=== PATIENT | female | born 1995 | race Caucasian/White ===

== ENCOUNTER 2017-01-09 15:44 | Emergency (ER) | payer OTHER ==
[2017-01-09 15:49] VITALS: RESP 20; TEMP 98.5
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
[2017-01-09 17:19] VITALS: BP 140/67; PULSE 123
== END 2017-01-09 17:32 | disposition short-term general hospital (02) ==
LOC: EC 15:44
DX: E05.90 Thyrotoxicosis, unspecified without thyrotoxic crisis or storm (principal); R00.0 Tachycardia, unspecified; Z91.012 Allergy to eggs; Z79.51 Long term (current) use of inhaled steroids; Z79.899 Other long term (current) drug therapy
CPT/HCPCS: 93005; 99283; 99284

== ENCOUNTER 2017-12-06 15:00 | Emergency (ER) | payer OTHER ==
[2017-12-06 15:06] VITALS: RESP 18
--- NOTE | 2017-12-06 15:32 | ED ---
General Adult HPI - General Chief complaint: Vaginal Bleeding Stated complaint: Bleeding 6-8 wks Time Seen by Provider: 12/06/17 15:20 Source: patient, RN notes reviewed Mode of arrival: ambulatory Limitations: no limitations - History of Present Illness Initial comments: Patient 21-year-old female presenting to the emergency room today with a chief complaint of vaginal bleeding over the last 6 weeks. Patient states that she's had constant bleeding at times been heavier. She states that she has at times felt dizzy and lightheaded. She states she does not feel that way currently lives been going on for 6 weeks and is unable to see her OB so she came here in emergency room. Patient does admit to abdominal cramping in the abdomen. Patient denies any recent fever, chills, shortness of breath, chest pain, back pain, abdominal pain, dysuria or hematuria, constipation or diarrhea, headaches or visual changes, or any other complaints. - Related Data Home Medications Medication Instructions Recorded Confirmed Albuterol Nebulized [Ventolin 2.5 mg INHALATION RT-QID PRN 01/09/17 12/06/17 Nebulized] Loratadine [Claritin] 10 mg PO DAILY 01/09/17 12/06/17 Methimazole 20 mg PO DAILY 01/09/17 12/06/17 Montelukast [Singulair] 10 mg PO DAILY 01/09/17 12/06/17 Previous Rx's Medication Instructions Recorded Ibuprofen [Motrin] 600 mg PO Q6HR PRN #30 day 12/06/17 Ondansetron Odt [Zofran ODT] 4 mg PO Q8HR PRN #20 tab 12/06/17 Allergies Allergy/AdvReac Type Severity Reaction Status Date / Time adhesive tape Allergy Rash/Hives Verified 12/06/17 15:49 corn Allergy Unknown Verified 12/06/17 15:49 egg Allergy Unknown Verified 12/06/17 15:49 Review of Systems ROS Statement: Those systems with pertinent positive or pertinent negative responses have been documented in the HPI. ROS Other: All systems not noted in ROS Statement are negative. Past Medical History Past Medical History: Thyroid Disorder History of Any Multi-Drug Resistant Organisms: None Reported Past Surgical History: No Surgical Hx Reported Past Psychological History: Anxiety Smoking Status: Never smoker Past Alcohol Use History: None Reported Past Drug Use History: None Reported General Exam - General Exam Comments Initial Comments: General: The patient is awake and alert, in no distress, and does not appear acutely ill. Eye: Extra-ocular movements are intact. No nystagmus. There is normal conjunctiva bilaterally. No signs of icterus. Ears, nose, mouth and throat: There are moist mucous membranes and no oral lesions. Neck: The neck is supple, there is no tenderness or JVD. Cardiovascular: There is a regular rate and rhythm. No murmur, rub or gallop is appreciated. Respiratory: Lungs are clear to auscultation, respirations are non-labored, breath sounds are equal. No wheezes, stridor, rales, or rhonchi. Gastrointestinal: Soft on palpation. Patient does have mild tenderness both in upper and lower quadrants. No rebound, guarding or CVA tenderness. Musculoskeletal: Normal ROM, no tenderness. Sensation intact. Neurological: A&O x 3. CN II-XII intact, There are no obvious motor or sensory deficits. Coordination appears grossly intact. Speech is normal. Skin: Skin is warm and dry and no rashes or lesions are noted. Psychiatric: Cooperative, appropriate mood & affect, normal judgment. Limitations: no limitations Course Vital Signs 12/06/17 15:02 Temperature 98.3 F Pulse Rate 89 Respiratory 18 Rate Blood Pressure 130/85 O2 Sat by Pulse 99 Oximetry Medical Decision Making - Medical Decision Making Patient's labs been reviewed. Hemoglobin is stable. Patient's ultrasound Thickened endometrium with uniform echogenicity. She will be discharged to follow-up with PIPELINE TECHNICIAN. She'll be given prescription for Zofran, ibuprofen for pain. Advised return to emergency room for any other concerns. - Lab Data Result diagrams: 12/06/17 15:30 12/06/17 15:30 Lab Results 12/06/17 12/06/17 12/06/17 Range/Units 15:30 15:30 15:30 WBC 7.0 (3.8-10.6) k/uL RBC 4.82 (3.80-5.40) m/uL Hgb 12.4 (11.4-16.0) gm/dL Hct 39.4 (34.0-46.0) % MCV 81.8 (80.0-100.0) fL MCH 25.8 (25.0-35.0) pg MCHC 31.5 (31.0-37.0) g/dL RDW 15.4 (11.5-15.5) % Plt Count 293 (150-450) k/uL Neutrophils % 77 % Lymphocytes % 16 % Monocytes % 5 % Eosinophils % 0 % Basophils % 0 % Neutrophils # 5.4 (1.3-7.7) k/uL Lymphocytes # 1.1 (1.0-4.8) k/uL Monocytes # 0.3 (0-1.0) k/uL Eosinophils # 0.0 (0-0.7) k/uL Basophils # 0.0 (0-0.2) k/uL PT 9.9 (9.0-12.0) sec INR 1.0 (<1.2) APTT 26.5 (22.0-30.0) sec Sodium 139 (137-145) mmol/L Potassium 4.4 (3.5-5.1) mmol/L Chloride 103 (98-107) mmol/L Carbon Dioxide 25 (22-30) mmol/L Anion Gap 11 mmol/L BUN 10 (7-17) mg/dL Creatinine 0.85 (0.52-1.04) mg/dL Est GFR (CKD-EPI)AfAm >90 (>60 ml/min/1.73 sqM) Est GFR (CKD-EPI)NonAf >90 (>60 ml/min/1.73 sqM) Glucose 93 (74-99) mg/dL Calcium 9.5 (8.4-10.2) mg/dL Total Bilirubin 0.4 (0.2-1.3) mg/dL AST 20 (14-36) U/L ALT 26 (9-52) U/L Alkaline Phosphatase 129 H (38-126) U/L Total Protein 8.1 (6.3-8.2) g/dL Albumin 4.4 (3.5-5.0) g/dL Urine Color Urine Appearance (Clear) Urine pH (5.0-8.0) Ur Specific [place] (1.001-1.035) Urine Protein (Negative) Urine Glucose (UA) (Negative) Urine Ketones (Negative) Urine Blood (Negative) Urine Nitrite (Negative) Urine Bilirubin (Negative) Urine Urobilinogen (<2.0) mg/dL Ur Leukocyte Esterase (Negative) Urine RBC (0-5) /hpf Urine WBC (0-5) /hpf Ur Squamous Epith Cells (0-4) /hpf Urine Bacteria (None) /hpf Urine Mucus (None) /hpf Urine HCG, Qual (Not Detectd) 12/06/17 12/06/17 Range/Units 17:54 17:54 WBC (3.8-10.6) k/uL RBC (3.80-5.40) m/uL Hgb (11.4-16.0) gm/dL Hct (34.0-46.0) % MCV (80.0-100.0) fL MCH (25.0-35.0) pg MCHC (31.0-37.0) g/dL RDW (11.5-15.5) % Plt Count (150-450) k/uL Neutrophils % % Lymphocytes % % Monocytes % % Eosinophils % % Basophils % % Neutrophils # (1.3-7.7) k/uL Lymphocytes # (1.0-4.8) k/uL Monocytes # (0-1.0) k/uL Eosinophils # (0-0.7) k/uL Basophils # (0-0.2) k/uL PT (9.0-12.0) sec INR (<1.2) APTT (22.0-30.0) sec Sodium (137-145) mmol/L Potassium (3.5-5.1) mmol/L Chloride (98-107) mmol/L Carbon Dioxide (22-30) mmol/L Anion Gap mmol/L BUN (7-17) mg/dL Creatinine (0.52-1.04) mg/dL Est GFR (CKD-EPI)AfAm (>60 ml/min/1.73 sqM) Est GFR (CKD-EPI)NonAf (>60 ml/min/1.73 sqM) Glucose (74-99) mg/dL Calcium (8.4-10.2) mg/dL Total Bilirubin (0.2-1.3) mg/dL AST (14-36) U/L ALT (9-52) U/L Alkaline Phosphatase (38-126) U/L Total Protein (6.3-8.2) g/dL Albumin (3.5-5.0) g/dL Urine Color Light Yellow Urine Appearance Clear (Clear) Urine pH 6.0 (5.0-8.0) Ur Specific [place] 1.005 (1.001-1.035) Urine Protein Negative (Negative) Urine Glucose (UA) Negative (Negative) Urine Ketones Negative (Negative) Urine Blood Large H (Negative) Urine Nitrite Negative (Negative) Urine Bilirubin Negative (Negative) Urine Urobilinogen <2.0 (<2.0) mg/dL Ur Leukocyte Esterase Negative (Negative) Urine RBC 57 H (0-5) /hpf Urine WBC 8 H (0-5) /hpf Ur Squamous Epith Cells <1 (0-4) /hpf Urine Bacteria Occasional H (None) /hpf Urine Mucus Rare H (None) /hpf Urine HCG, Qual Not Detected (Not Detectd) Disposition Clinical Impression: Dysfunctional uterine bleeding Disposition: HOME SELF-CARE Condition: Good Additional Instructions: Please use medication as discussed. Please follow-up with PIPELINE TECHNICIAN/family doctor in the next 2-5 days of symptoms have not improved. Please return to emergency room if the symptoms increase or worsen or for any other concerns. Prescriptions: Ibuprofen [Motrin] 600 mg PO Q6HR PRN #30 day PRN Reason: Pain Ondansetron Odt [Zofran ODT] 4 mg PO Q8HR PRN #20 tab PRN Reason: Nausea Is patient prescribed a controlled substance at d/c from ED?: No Referrals: Guero Bañuelos MD [Primary Care Provider] - 1-2 days Time of Disposition: 18:21
[2017-12-06 15:58] LABS: ALT 26 U/L (9-52); AST 20 U/L (14-36); Albumin 4.4 g/dL (3.5-5.0); Alkaline Phosphatase 129 U/L (38-126); Anion Gap 11 mmol/L; Blood Urea Nitrogen 10 mg/dL (7-17); Calcium 9.5 mg/dL (8.4-10.2); Carbon Dioxide 25 mmol/L (22-30); Chloride 103 mmol/L (98-107); Glucose 93 mg/dL (74-99); Potassium 4.4 mmol/L (3.5-5.1); Sodium 139 mmol/L (137-145); Total Bilirubin 0.4 mg/dL (0.2-1.3); Total Protein 8.1 g/dL (6.3-8.2)
[2017-12-06 16:00] LABS: Basophils % (A) 0 %; Eosinophils % (A) 0 %; HCT 39.4 % (34.0-46.0); HGB 12.4 gm/dL (11.4-16.0); Lymphocytes # (A) 1.1 k/uL (1.0-4.8); Lymphocytes % (A) 16 %; MCH 25.8 pg (25.0-35.0); MCHC 31.5 g/dL (31.0-37.0); MCV 81.8 fL (80.0-100.0); Mean Platelet Volume 6.4; Monocytes # (A) 0.3 k/uL (0-1.0); Monocytes % (A) 5 %; Neutrophils # (A) 5.4 k/uL (1.3-7.7); Neutrophils % (A) 77 %; Platelet Count 293 k/uL (150-450); RBC 4.82 m/uL (3.80-5.40); RDW 15.4 % (11.5-15.5)
[2017-12-06 16:09] LABS: Partial Thromboplastin Time 26.5 sec (22.0-30.0); Prothrombin Time 9.9 sec (9.0-12.0)
--- NOTE | 2017-12-06 17:05 | US ---
EXAMINATION TYPE: US transvaginal DATE OF EXAM: 12/06/2017 COMPARISON: NONE CLINICAL HISTORY: bleeding. Bleeding since 10/26/2017 with intermittent cramping, history of irregula r cycles, 0 TECHNIQUE: Transvaginal ER exam. Date of LMP: 10/26/2017 EXAM MEASUREMENTS: Uterus: 9.5 x 4.4 x 5.2 cm Endometrial Stripe: 1.8 cm Right Ovary: not seen Left Ovary: not seen Difficult and limited study due to patient body habitus 1. Uterus: anteverted, multiple nabothian cysts 2. Endometrium: thickened at 1.8cm 3. Right Ovary: not seen due to overlying bowel 4. Left Ovary: not seen due to overlying bowel 5. Bilateral Adnexa: wnl 6. Posterior cul-de-sac: wnl IMPRESSION: Uterus is demonstrating a thickened endometrium with uniform echogenicity. This is probab ly related to hyperplasia. Ovaries not seen. No adnexal mass or free fluid. Numerous cervical cysts a re noted on the transvaginal images.
[2017-12-06] MEDS ORDERED: ONDANSETRON 4 MG/2 ML VIAL IVP STA (17:27)
[2017-12-06 18:10] LABS: Appearance,Urine Clear (Clear); Bacteria,Urine Occasional /hpf; Bilirubin,Urine Negative (Negative); Blood,Urine Large (Negative); Color,Urine Light Yellow; Glucose,Urine (UA) Negative (Negative); Ketones,Urine Negative (Negative); Leukocyte Esterase,Urine Negative (Negative); Mucus,Urine Rare /hpf; Nitrite,Urine Negative (Negative); Protein,Urine Negative (Negative); RBC,Urine 57 /hpf (0-5); Specific Gravity,Urine 1.005 (1.001-1.035); Squamous Epithelial Cell,Urine <1 /hpf (0-4); Urobilinogen,Urine <2.0 mg/dL (<2.0)
[2017-12-06 19:06] VITALS: BP 150/84; PULSE 84; TEMP 97.7
== END 2017-12-06 19:06 | disposition home or self-care (01) ==
LOC: EC 15:00
DX: N93.8 Other specified abnormal uterine and vaginal bleeding (principal); R42 Dizziness and giddiness; R10.9 Unspecified abdominal pain; E07.9 Disorder of thyroid, unspecified; F41.9 Anxiety disorder, unspecified; Z79.899 Other long term (current) drug therapy; Z91.018 Allergy to other foods; Z91.048 Other nonmedicinal substance allergy status
CPT/HCPCS: 51798; 36415; 80053; 85025; 85610; 85730; 81001; 81025; 87086; 76830; 99284; 96374; J2405

== ENCOUNTER → 2020-10-08 | Outpatient (CLI) | payer OTHER ==
[2020-10-08 11:47] LABS: Anisocytosis Slight; Basophils % (A) 1 %; Eosinophils # (A) 0.3 k/uL (0-0.7); Eosinophils % (A) 4 %; HCT 27.6 % (34.0-46.0); HGB 8.8 gm/dL (11.4-16.0); Hypochromasia Marked; Lymphocytes # (A) 1.6 k/uL (1.0-4.8); Lymphocytes % (A) 22 %; MCH 21.5 pg (25.0-35.0); MCHC 32.1 g/dL (31.0-37.0); MCV 67.1 fL (80.0-100.0); Mean Platelet Volume 7.1; Microcytosis Marked; Monocytes # (A) 0.3 k/uL (0-1.0); Monocytes % (A) 4 %; Neutrophils # (A) 4.9 k/uL (1.3-7.7); Neutrophils % (A) 68 %; Platelet Count 308 k/uL (150-450); RBC 4.11 m/uL (3.80-5.40); RDW 17.3 % (11.5-15.5); WBC 7.2 k/uL (3.8-10.6)
== END | disposition home or self-care (01) ==
LOC: LABPAT 09:41
PROVIDERS: ATTEND Obstetrics & Gynecology Obstetrics
DX: Z01.812 Encounter for preprocedural laboratory examination (principal); N93.9 Abnormal uterine and vaginal bleeding, unspecified
CPT/HCPCS: 36415; 85025

== ENCOUNTER 2020-10-12 07:05 | Day surgery (SDC) | payer OTHER ==
[2020-10-09 10:13] VITALS: BMI 48.1
[~2020-10-12 07:05] MED LIST: DEXAMETHASONE SOD PHOSPHATE 4 MG/ML 1 ML VIAL IV ONE; HYDROmorphone 0.5 MG/0.5 ML SYRINGE IVP PRN; LACTATED RINGERS 1,000 ML IV SCH; LIDOCAINE 1% (10MG/ML) FOR IV START INTRADERMA PRN; MIDAZOLAM 2 MG/2 ML VIAL IV PRN; ONDANSETRON 4 MG/2 ML VIAL IVP ONE; Pre Op ABX Message 1 EACH MISC MISCELLANE ONE
[2020-10-12] MEDS ORDERED: ALBUTEROL NEBULIZED 2.5 MG/3 ML INHALATION ONE (08:03)
[2020-10-12] MEDS ORDERED: SUCCINYLCHOLINE CHLORIDE 100 MG/5 ML SYR IV ONE (08:34)
[2020-10-12] MEDS ORDERED: fentaNYL (PF) 50 MCG/ML 2 ML AMP ONE (08:34)
[2020-10-12] MEDS ORDERED: MIDAZOLAM 2 MG/2 ML VIAL ONE (08:34)
[2020-10-12] MEDS ORDERED: LIDOCAINE 1% INJ 10MG/ML (20 ML MDV) ONE (08:34)
[2020-10-12] MEDS ORDERED: PROPOFOL 10 MG/ML 20 ML VIAL IV ONE (08:34)
[2020-10-12 09:19] VITALS: TEMP 97
--- NOTE | 2020-10-12 09:24 | P.OP ---
Date of Procedure: 10/12/20 Preoperative Diagnosis: Dysfunctional uterine bleeding, anemia, thickened endometrial stripe at 2 cm Postoperative Diagnosis: Same Procedure(s) Performed: Hysteroscopy, dilation and curettage Anesthesia: RACHEL Surgeon: Muna Matta Estimated Blood Loss (ml): 5 IV fluids (ml): 400 Urine output (ml): 50 Pathology: other (Endometrial curettings) Condition: stable Disposition: PACU Indications for Procedure: Irregular heavy menstrual bleeding, on ultrasound thickened endometrial lining 2 cm Operative Findings: Proliferative endometrial cavity Description of Procedure: Patient was taken back to the operating suite where general anesthesia was obtained without difficulty by the anesthesia department. The patient was prepped and draped in normal sterile fashion in the dorsal lithotomy position. A weighted speculum was placed in the posterior vaginal vault the anterior lip of the cervix was visualized and grasped with a single-tooth tenaculum. The endocervical canal was then dilated. A hysteroscope was placed through the cervix and toward the endometrial cavity the above-noted findings were visualized. A sharp curettage was performed after the hysteroscope was removed this specimen was then sent to pathology for analysis. The single-tooth tenaculum was taken off of the anterior lip of the cervix. Hemostasis was appreciated. All instruments were removed from the patient's vaginal vault. All counts are noted to be correct 2 at the end of the procedure. Patient tolerated procedure well and was taken the recovery room awake in stable condition.
[2020-10-12 09:43] VITALS: RESP 16
[2020-10-12 10:04] VITALS: BP 113/70; PULSE 98
== END 2020-10-12 10:40 | disposition home or self-care (01) ==
LOC: OR 07:05
PROVIDERS: ATTEND Obstetrics & Gynecology Obstetrics
DX: R93.89 Abnormal findings on diagnostic imaging of other specified body structures (principal); D64.9 Anemia, unspecified; N92.0 Excessive and frequent menstruation with regular cycle; N93.8 Other specified abnormal uterine and vaginal bleeding; F41.8 Other specified anxiety disorders; E66.01 Morbid (severe) obesity due to excess calories; E07.9 Disorder of thyroid, unspecified
CPT/HCPCS: 58563; 81025; 88305; J2250; J1100; J2405; J2001; J3010; J0330; J2704

== ENCOUNTER 2022-09-28 16:55 | Emergency (ER) | payer OTHER ==
[2022-09-28 17:36] VITALS: TEMP 98
--- NOTE | 2022-09-28 18:18 | ED ---
Skin/Abscess/FB HPI - General Source: patient, RN notes reviewed Mode of arrival: ambulatory Limitations: no limitations - History of Present Illness MD complaint: rash <Janneth Walsh - Last Filed: 09/28/22 18:15> <Komal Gillette - Last Filed: 09/29/22 03:36> - General Chief complaint: Skin/Abscess/Foreign Body Stated complaint: R arm Rash, spreaded since morning after seeing PA Time Seen by Provider: 09/28/22 18:10 - History of Present Illness Initial comments: This is a 26-year-old female who presents to the emergency department for a rash to the right forearm. States that this started about 3 weeks ago. She saw her primary care provider today, and believes that it has spread since then. Describes the rash as painful. Denies coming into contact with any new substances or any plants outside that may have caused this. (Janneth Walsh) 26-year-old female presenting with chief complaint of rash to the right forearm that has been ongoing for the last 3 weeks. The rash is quite "bumpy", it appears red and it is sensitive to light touch. Patient is having increased irritation. He is currently taking Benadryl and Claritin as well as an antihistamine cream. No difficulty breathing or swallowing. No fevers or chills. No nausea or vomiting. No new foods, medications, topical products. (Komal Gillette) - Related Data Home Medications Medication Instructions Recorded Confirmed Albuterol Nebulized [Ventolin 2.5 mg INHALATION RT-QID PRN 01/09/17 10/12/20 Nebulized] Loratadine [Claritin] 10 mg PO DAILY 01/09/17 10/12/20 Montelukast [Singulair] 10 mg PO DAILY 01/09/17 10/12/20 Bcp 1 tab PO DAILY 10/09/20 10/12/20 Ergocalciferol [Vitamin D2 (1250 1,250 mcg PO WEEKLY 10/09/20 10/12/20 Mcg = 80948 Iu)] Escitalopram [Lexapro] 10 mg PO DAILY 10/09/20 10/12/20 Ferrous Sulfate [Feosol] 325 mg PO DAILY 10/09/20 10/12/20 LORazepam [Ativan] 0.5 mg PO DAILY PRN 10/09/20 10/12/20 Levothyroxine Sodium [Synthroid] 175 mcg PO DAILY 10/09/20 10/12/20 Previous Rx's Medication Instructions Recorded predniSONE 50 mg PO DAILY 5 Days #5 tab 09/28/22 Allergies Allergy/AdvReac Type Severity Reaction Status Date / Time adhesive tape Allergy Rash/Hives Verified 09/28/22 17:33 corn Allergy Unknown Verified 09/28/22 17:33 egg Allergy Unknown Verified 09/28/22 17:33 Review of Systems ROS Other: All systems not noted in ROS Statement are negative. <Janneth Walsh - Last Filed: 09/28/22 18:15> ROS Other: All systems not noted in ROS Statement are negative. <Komal Gillette - Last Filed: 09/29/22 03:36> ROS Statement: Those systems with pertinent positive or pertinent negative responses have been documented in the HPI. Past Medical History Past Medical History: Thyroid Disorder History of Any Multi-Drug Resistant Organisms: None Reported Past Surgical History: No Surgical Hx Reported Past Psychological History: Anxiety Past Alcohol Use History: None Reported Past Drug Use History: None Reported <Janneth Walsh - Last Filed: 09/28/22 18:15> General Exam Limitations: no limitations <Janneth Walsh - Last Filed: 09/28/22 18:15> Limitations: no limitations General appearance: alert, in no apparent distress Head exam: Present: atraumatic, normocephalic, normal inspection Eye exam: Present: normal appearance, PERRL, EOMI. Absent: scleral icterus, conjunctival injection, periorbital swelling ENT exam: Present: normal exam Neck exam: Present: normal inspection, full ROM Respiratory exam: Present: normal lung sounds bilaterally. Absent: respiratory distress, wheezes, rales, rhonchi, stridor Cardiovascular Exam: Present: regular rate, normal rhythm, normal heart sounds. Absent: systolic murmur, diastolic murmur, rubs, gallop, clicks Neurological exam: Present: alert, oriented X3, CN II-XII intact Psychiatric exam: Present: normal affect, normal mood Skin exam: Present: rash (Erythematous and papular rash to the right forearm) <Komal Gillette - Last Filed: 07/06/23 03:36> - General Exam Comments Initial Comments: Visual Physical Exam Vital signs reviewed General: Well-appearing, nontoxic, no acute distress. Head: Normocephalic, atraumatic Eyes: PERRLA, EOMI ENT: Airway patent Chest: Nonlabored breathing Skin: No visual rash, normal skin tone Neuro: Alert and oriented 3 Musculoskeletal: No gross abnormalities (Vogley,Janneth) Course Vital Signs 09/28/22 09/28/22 17:34 19:38 Temperature 98 F Pulse Rate 107 H 98 Respiratory 16 18 Rate Blood Pressure 115/50 143/94 O2 Sat by Pulse 94 L 98 Oximetry Medical Decision Making <Komal Gillette - Last Filed: 09/29/22 03:36> - Medical Decision Making Was pt. sent in by a medical professional or institution (Dr. PA, [employer], urgent care, hospital, or residential...) When possible be specific @ -No Did you speak to anyone other than the patient for history (EMS, parent, family, police, friend...)? What history was obtained from this source @ -No Did you review nursing and triage notes (agree or disagree)? Why? @ -I reviewed and agree with nursing and triage notes Were old charts reviewed (outside hosp., previous admission, EMS record, old EKG, old radiological studies, urgent care reports/EKG's, residential records)? Report findings @ -No old charts were reviewed Differential Diagnosis (chest pain, altered mental status, abdominal pain women, abdominal pain men, vaginal bleeding, weakness, fever, dyspnea, syncope, headache, dizziness, GI bleed, back pain, seizure, CVA, palpatations, mental health, musculoskeletal)? @ -Differential includes ALLERGIC reaction, Peter Ruperto syndrome, herpes zoster, this is not an all inclusive list EKG interpreted by me (3pts min.). @ -As above X-rays interpreted by me (1pt min.). @ -None done CT interpreted by me (1pt min.). @ -None done U/S interpreted by me (1pt. min.). @ -None done What testing was considered but not performed or refused? (CT, X-rays, U/S, labs)? Why? @ -None What meds were considered but not given or refused? Why? @ -None Did you discuss the management of the patient with other professionals (professionals i.e. , PA, [employer], lab, RT, psych nurse, case management social worker, adobe cq developer, teacher, department of natural resources officer, high risk case manager)? Give summary @ -No Was smoking cessation discussed for >3mins.? @ -No Was critical care preformed (if so, how long)? @ -No Were there social determinants of health that impacted care today? How? (Homelessness, low income, unemployed, alcoholism, drug addiction, transportation, low edu. Level, literacy, decrease access to med. care, senior living, rehab)? @ -No Was there de-escalation of care discussed even if they declined (Discuss DNR or withdrawal of care, Hospice)? DNR status @ -No What co-morbidities impacted this encounter? (DM, HTN, Smoking, COPD, CAD, Cancer, CVA, ARF, Chemo, Hep., AIDS, mental health diagnosis, sleep apnea, morbid obesity)? @ -None Was patient admitted / discharged? Hospital course, mention meds given and route, prescriptions, significant lab abnormalities, going to OR and other pertinent info. @ -26-year-old female presenting with chief complaint of rash to the right forearm ongoing for the last 3 weeks. She is currently on various antihistamines which are not improving the rash. On physical examination the rash is erythematous and sensitive to touch. Does not appear consistent with cellulitis. There are multiple papules to the forearm. No difficulty breathing or swallowing. Patient will be started on prednisone. Follow-up with PCP. Report back to ER with any new or worsening symptoms. Discussed return parameters and answered all questions. Patient conveyed verbal understanding and agreed to the plan. I discussed this case in detail with my attending Dr. Garner Undiagnosed new problem with uncertain prognosis? @ -No Drug Therapy requiring intensive monitoring for toxicity (Heparin, Nitro, Insulin, Cardizem)? @ -No Were any procedures done? @ -No Diagnosis/symptom? @ -Rash Acute, or Chronic, or Acute on Chronic? @ -Acute Uncomplicated (without systemic symptoms) or Complicated (systemic symptoms)? @ -Uncomplicated Side effects of treatment? @ -No Exacerbation, Progression, or Severe Exacerbation? @ -No Poses a threat to life or bodily function? How? (Chest pain, [place], [place], pneumonia, PE, COPD, DKA, ARF, appy, cholecystitis, CVA, Diverticulitis, Homicidal, Suicidal, threat to staff... and all critical care pts) @ -No (Komal Gillette) Disposition <Janneth Walsh - Last Filed: 09/28/22 18:15> Is patient prescribed a controlled substance at d/c from ED?: No Time of Disposition: 19:53 <Komal Gillette - Last Filed: 09/29/22 03:36> Clinical Impression: Rash Disposition: HOME SELF-CARE Condition: Good Instructions (If sedation given, give patient instructions): Acute Rash (ED), General Allergic Reaction (ED) Additional Instructions: Follow-up with PCP. Continue taking medications as prescribed. Report back to ER with any new or worsening symptoms. Prescriptions: predniSONE 50 mg PO DAILY 5 Days #5 tab Referrals: Guero Bañuelos MD [Primary Care Provider] - 1-2 days
[2022-09-28 19:44] VITALS: BP 143/94; PULSE 98; RESP 18
== END 2022-09-28 20:13 | disposition home or self-care (01) ==
LOC: EC 16:55
DX: R21 Rash and other nonspecific skin eruption (principal); F41.9 Anxiety disorder, unspecified; E07.9 Disorder of thyroid, unspecified; Z79.890 Hormone replacement therapy; Z79.899 Other long term (current) drug therapy; Z91.012 Allergy to eggs; Z91.018 Allergy to other foods
CPT/HCPCS: 99282

== ENCOUNTER 2023-01-22 11:13 | Emergency (ER) | payer OTHER ==
[2023-01-22] MEDS ORDERED: methylPREDNISolone SOD SUCCI 125 MG/2 ML VIAL IV STA (11:53)
[2023-01-22] MEDS ORDERED: SODIUM CHLORIDE 0.9% 1,000 ML IV STA (11:53)
[2023-01-22] MEDS ORDERED: IPRATROPIUM-ALBUTEROL 3 ML NEB INHALATION STA (11:53)
[2023-01-22] MEDS ORDERED: KETOROLAC 15 MG/ML 1 ML VIAL IVP STA (11:54)
[2023-01-22 12:29] VITALS: RESP 18
[2023-01-22 12:46] LABS: Basophils % (A) 0 %; Eosinophils # (A) 0.4 k/uL (0-0.7); Eosinophils % (A) 6 %; HCT 37.3 % (34.0-46.0); HGB 12.4 gm/dL (11.4-16.0); Lymphocytes # (A) 1.7 k/uL (1.0-4.8); Lymphocytes % (A) 23 %; MCH 25.4 pg (25.0-35.0); MCHC 33.3 g/dL (31.0-37.0); MCV 76.3 fL (80.0-100.0); Mean Platelet Volume 7.9; Microcytosis Slight; Monocytes # (A) 0.3 k/uL (0-1.0); Monocytes % (A) 4 %; Neutrophils # (A) 4.7 k/uL (1.3-7.7); Neutrophils % (A) 64 %; Platelet Count 293 k/uL (150-450); RBC 4.89 m/uL (3.80-5.40); RDW 14.9 % (11.5-15.5); WBC 7.3 k/uL (3.8-10.6)
[2023-01-22 12:56] LABS: ALT 26 U/L (4-34); African American GFR (CKD) >90 (>60 ml/min/1.73 sqM); Albumin 3.8 g/dL (3.5-5.0); Anion Gap 9 mmol/L; Blood Urea Nitrogen 12 mg/dL (7-17); Calcium 9.1 mg/dL (8.4-10.2); Carbon Dioxide 19 mmol/L (22-30); Chloride 109 mmol/L (98-107); Glucose 89 mg/dL (74-99); Non-African American GFR(CKD) >90 (>60 ml/min/1.73 sqM); Sodium 137 mmol/L (137-145); Total Bilirubin 0.5 mg/dL (0.2-1.3); Total Protein 7.2 g/dL (6.3-8.2)
[2023-01-22 12:59] LABS: INR 0.9 (<1.2); Partial Thromboplastin Time 24.3 sec (22.0-30.0); Prothrombin Time 10.1 sec (10.0-12.5)
[2023-01-22 13:04] LABS: NT-Pro-B-Type Natriuretic Pept <20 pg/mL
--- NOTE | 2023-01-22 13:09 | XR ---
EXAMINATION TYPE: XR chest 2V DATE OF EXAM: 01/22/2023 12:05 PM CLINICAL INDICATION:Female, 27 years old with history of difficulty breathing; [facility] COMPARISON: None TECHNIQUE: XR chest 2V Frontal and lateral views of the chest. FINDINGS: Lines/Tubes: No indwelling lines are seen. Lungs/Pleura: There is no evidence of focal consolidation, or pneumothorax. Mild blunting of the rig ht costophrenic angle suggesting small effusion. Pulmonary vascularity: Unremarkable. Heart/mediastinum: Cardiomediastinal silhouette is unremarkable. Heart is not enlarged. Musculoskeletal: No acute osseous pathology. Mild degenerative changes. Other findings: None IMPRESSION: Suspect small right pleural effusion.
[2023-01-22 13:15] LABS: AST 34 U/L (14-36); Alkaline Phosphatase 103 U/L (38-126); Magnesium 1.8 mg/dL (1.6-2.3); Potassium 4.8 mmol/L (3.5-5.1)
--- NOTE | 2023-01-22 13:20 | ED ---
General Adult HPI - General Chief complaint: Shortness of Breath Stated complaint: asthma Time Seen by Provider: 01/22/23 11:15 Source: patient, RN notes reviewed, old records reviewed Mode of arrival: wheelchair Limitations: no limitations - History of Present Illness Initial comments: Patient is a 27-year-old female with past medical history remarkable for eosinophilic asthma who uses nebulized albuterol a daily basis presents emergency Department complaining of worsening she describes as lung pain. Does have a chronic cough as well as wheezing daily uses her nebulizer machine. Has never been hospitalized for asthma. Denies any fevers. Does endorse a productive cough which is somewhat typical for her but seems to be more frequently lately. Denies any fevers. Denies any abdominal pain, nausea, vomiting. States she is also having some reproducible chest pain on the left side of her sternum for the last few days. Seems to be worse with coughing and deep inspiration. States she has had muscle strains previously from coughing but this seems somewhat different. Presents for further evaluation. Pain does not radiate. Describes it as sharp in nature. Presents for further evaluation. - Related Data Home Medications Medication Instructions Recorded Confirmed Albuterol Nebulized [Ventolin 2.5 mg INHALATION RT-QID PRN 01/09/17 10/12/20 Nebulized] Loratadine [Claritin] 10 mg PO DAILY 01/09/17 10/12/20 Montelukast [Singulair] 10 mg PO DAILY 01/09/17 10/12/20 Bcp 1 tab PO DAILY 10/09/20 10/12/20 Ergocalciferol [Vitamin D2 (1250 1,250 mcg PO WEEKLY 10/09/20 10/12/20 Mcg = 69676 Iu)] Escitalopram [Lexapro] 10 mg PO DAILY 10/09/20 10/12/20 Ferrous Sulfate [Feosol] 325 mg PO DAILY 10/09/20 10/12/20 LORazepam [Ativan] 0.5 mg PO DAILY PRN 10/09/20 10/12/20 Levothyroxine Sodium [Synthroid] 175 mcg PO DAILY 10/09/20 10/12/20 Previous Rx's Medication Instructions Recorded predniSONE 50 mg PO DAILY 5 Days #5 tab 09/28/22 Azithromycin [Zithromax] 250 mg PO DAILY 4 Days #4 tab 01/22/23 predniSONE [Deltasone] 40 mg PO DAILY 5 Days #10 tab 01/22/23 Allergies Allergy/AdvReac Type Severity Reaction Status Date / Time adhesive tape Allergy Rash/Hives Verified 01/22/23 11:17 corn Allergy Unknown Verified 01/22/23 11:17 egg Allergy Unknown Verified 01/22/23 11:17 Review of Systems ROS Statement: Those systems with pertinent positive or pertinent negative responses have been documented in the HPI. Review of Systems: CONST: Denies fever EYES: Denies blurry vision ENT: Denies nasal congestion C/V: Endorses chest wall pain RESP: Endorses wheezing GI: Denies abdominal pain : Denies dysuria SKIN: Denies rash. MSK: Denies joint pain. NEURO: Denies headache ROS Other: All systems not noted in ROS Statement are negative. Past Medical History Past Medical History: Asthma, Thyroid Disorder History of Any Multi-Drug Resistant Organisms: None Reported Past Surgical History: No Surgical Hx Reported Past Psychological History: Anxiety Smoking Status: Never smoker Past Alcohol Use History: None Reported Past Drug Use History: None Reported General Exam - General Exam Comments Initial Comments: General: Appears in no acute distress. HEAD: Normal with no signs of head trauma. EYES: PERRLA, EOMI, conjunctiva normal, no discharge. ENT: Hearing grossly intact, normal oropharynx. RESPIRATORY: Patient has bilateral end expiratory wheezing. No hypoxia. Patient has reproducible chest wall pain on the left side of her sternum. No obvious deformities of the chest wall. No flail chest. C/V: Regular rate and rhythm. S1 and S2 auscultated, no edema, peripheral pulses 2+ and intact throughout ABD: Abd is soft, nontender, nondistended EXT: Normal range of motion, no obvious deformity SKIN: No rashes or lesions observed on exposed skin. NEURO: Alert and oriented 4. Limitations: no limitations Course Vital Signs 01/22/23 01/22/23 01/22/23 11:17 12:21 12:23 Temperature 98 F 98.0 F Pulse Rate 88 79 78 Respiratory 16 22 18 Rate Blood Pressure 141/74 132/80 O2 Sat by Pulse 100 97 Oximetry 01/22/23 12:31 Temperature Pulse Rate 84 Respiratory 18 Rate Blood Pressure O2 Sat by Pulse Oximetry Medical Decision Making - Medical Decision Making Was pt. sent in by a medical professional or institution (Dr., PA, LINUX ARCHITECT, urgent care, hospital, or correction...) When possible be specific @ -No Did you speak to anyone other than the patient for history (EMS, parent, family, police, friend...)? What history was obtained from this source @ -No Did you review nursing and triage notes (agree or disagree)? Why? @ -I reviewed and agree with nursing and triage notes Were old charts reviewed (outside hosp., previous admission, EMS record, old EKG, old radiological studies, urgent care reports/EKG's, correction records)? Report findings @ -Old charts reviewed Differential Diagnosis (chest pain, altered mental status, abdominal pain women, abdominal pain men, vaginal bleeding, weakness, fever, dyspnea, syncope, headache, dizziness, GI bleed, back pain, seizure, CVA, palpatations, mental health, musculoskeletal)? @ -Differential Dyspnea: Coronary syndrome, arrhythmia, tamponade, asthma, COPD, pulmonary embolism, pneumonia, pneumothorax, pulmonary effusion, anaphylaxis, diabetic ketoacidosis, flailed chest, pulmonary contusion, diaphragmatic rupture, anemia, neuromuscular, this is not meant to be an all-inclusive list. EKG interpreted by me (3pts min.). @ -As above X-rays interpreted by me (1pt min.). @ -Chest x-ray reveals no obvious acute cardio pulmonary process. Possible small right pleural effusion. CT interpreted by me (1pt min.). @ -None done U/S interpreted by me (1pt. min.). @ -None done What testing was considered but not performed or refused? (CT, X-rays, U/S, labs)? Why? @ -None What meds were considered but not given or refused? Why? @ -None Did you discuss the management of the patient with other professionals (professionals i.e. , PA, LINUX ARCHITECT, lab, RT, psych nurse, social service agency director, equipment superintendent, teacher, annual giving officer, correctional counselor/case manager)? Give summary @ -No Was smoking cessation discussed for >3mins.? @ -No Was critical care preformed (if so, how long)? @ -No Were there social determinants of health that impacted care today? How? (Homelessness, low income, unemployed, alcoholism, drug addiction, transportation, low edu. Level, literacy, decrease access to med. care, senior living, rehab)? @ -No Was there de-escalation of care discussed even if they declined (Discuss DNR or withdrawal of care, Hospice)? DNR status @ -No What co-morbidities impacted this encounter? (DM, HTN, Smoking, COPD, CAD, Ca ncer, CVA, ARF, Chemo, Hep., AIDS, mental health diagnosis, sleep apnea, morbid obesity)? @ -Asthma Was patient admitted / discharged? Hospital course, mention meds given and route, prescriptions, significant lab abnormalities, going to OR and other pertinent info. @ -Based on the patient's presentation and physical exam, I'm concerned for possible asthma exacerbation the cannot rule out cardio pulmonary etiology at this time. Patient was sided chest discomfort that seems to somewhat chest wall pain however patient is having worsening pain than what she normally deals with. Due to her having atypical chest discomfort with her symptoms of his buttock with multiple days we will obtain cardiopulmonary workup more extensive than just asthma. Patient was in agreement this plan. She'll be given IV steroids as well as a breathing treatment. Patient will be given Toradol for pain as well as 1 L fluid bolus. Vital signs will be obtained. Troponin labs will be obtained. Patient was in agreement this plan. EKG shows no signs of ischemia. Labs remarkable for an undetectable troponin, undetectable BNP. D-dimer is within acceptable limits. Chest x-ray shows no evidence of acute infectious process. Possible small pleural effusion on the right seen by radiology. I discussed results with the patient. She is feeling significantly improved. Wheezing is improved. Chest wall pain is improved. She'll be discharged home at this time. Diagnosis is asthma exacerbation, chest wall strain, as well as possible tracheal bronchitis. She will be given azithromycin empirically as well as prednisone. She'll be has her breathing treatments at home. She was in agreement this plan. She'll follow up with their PCP. She'll be given a dose of the azithromycin prior to discharge I will provide the patient with a prescription for prednisone, azithromycin. I instructed the patient to follow up with their PCP in the next 1-3 days . I explained that the patient should return to the emergency department if they experience any worsening symptoms. Strict return precautions were discussed with the patient. The patient expressed understanding of these instructions. I answered all questions that the patient had. The patient was discharged home in good condition with their prescriptions and follow up information. Undiagnosed new problem with uncertain prognosis? @ -No Drug Therapy requiring intensive monitoring for toxicity (Heparin, Nitro, In sulin, Cardizem)? @ -No Were any procedures done? @ -No Diagnosis/symptom? @ -Asthma Acute, or Chronic, or Acute on Chronic? @ -Acute on chronic Uncomplicated (without systemic symptoms) or Complicated (systemic symptoms)? @ -Complicated Side effects of treatment? @ -No Exacerbation, Progression, or Severe Exacerbation? @ -Exacerbation Poses a threat to life or bodily function? How? (Chest pain, [place], [place], pneumonia, PE, COPD, DKA, ARF, appy, cholecystitis, CVA, Diverticulitis, Homicidal, Suicidal, threat to staff... and all critical care pts) @ -No Diagnosis/symptom? @ -Chest wall strain Acute, or Chronic, or Acute on Chronic? @ -Acute Uncomplicated (without systemic symptoms) or Complicated (systemic symptoms)? @ -Uncomplicated Side effects of treatment? @ -none Exacerbation, Progression, or Severe Exacerbation] @ -no Poses a threat to life or bodily function? @ -no Diagnosis/symptom? @ -Tracheobronchitis Acute, or Chronic, or Acute on Chronic? @ -Acute Uncomplicated (without systemic symptoms) or Complicated (systemic symptoms)? @ -Uncomplicated Side effects of treatment? @ -none Exacerbation, Progression, or Severe Exacerbation] @ -no Poses a threat to life or bodily function? @ -no - Lab Data Result diagrams: 01/22/23 12:20 01/22/23 12:20 Lab Results 01/22/23 01/22/23 01/22/23 Range/Units 12:20 12:20 12:20 WBC 7.3 (3.8-10.6) k/uL RBC 4.89 (3.80-5.40) m/uL Hgb 12.4 (11.4-16.0) gm/dL Hct 37.3 (34.0-46.0) % MCV 76.3 L (80.0-100.0) fL MCH 25.4 (25.0-35.0) pg MCHC 33.3 (31.0-37.0) g/dL RDW 14.9 (11.5-15.5) % Plt Count 293 (150-450) k/uL MPV 7.9 Neutrophils % 64 % Lymphocytes % 23 % Monocytes % 4 % Eosinophils % 6 % Basophils % 0 % Neutrophils # 4.7 (1.3-7.7) k/uL Lymphocytes # 1.7 (1.0-4.8) k/uL Monocytes # 0.3 (0-1.0) k/uL Eosinophils # 0.4 (0-0.7) k/uL Basophils # 0.0 (0-0.2) k/uL Microcytosis Slight PT 10.1 (10.0-12.5) sec INR 0.9 (<1.2) APTT 24.3 (22.0-30.0) sec D-Dimer 0.56 (<0.60) mg/L FEU Sodium 137 (137-145) mmol/L Potassium 4.8 (3.5-5.1) mmol/L Chloride 109 H (98-107) mmol/L Carbon Dioxide 19 L (22-30) mmol/L Anion Gap 9 mmol/L BUN 12 (7-17) mg/dL Creatinine 0.55 (0.52-1.04) mg/dL Est GFR (CKD-EPI)AfAm >90 (>60 ml/min/1.73 sqM) Est GFR (CKD-EPI)NonAf >90 (>60 ml/min/1.73 sqM) Glucose 89 (74-99) mg/dL Calcium 9.1 (8.4-10.2) mg/dL Magnesium 1.8 (1.6-2.3) mg/dL Total Bilirubin 0.5 (0.2-1.3) mg/dL AST 34 (14-36) U/L ALT 26 (4-34) U/L Alkaline Phosphatase 103 (38-126) U/L Troponin I (0.000-0.034) ng/mL NT-Pro-B Natriuret Pep <20 pg/mL Total Protein 7.2 (6.3-8.2) g/dL Albumin 3.8 (3.5-5.0) g/dL Influenza Type A (PCR) (Not Detectd) Influenza Type B (PCR) (Not Detectd) RSV (PCR) (Not Detectd) SARS-CoV-2 (PCR) (Not Detectd) 01/22/23 01/22/23 Range/Units 12:20 12:20 WBC (3.8-10.6) k/uL RBC (3.80-5.40) m/uL Hgb (11.4-16.0) gm/dL Hct (34.0-46.0) % MCV (80.0-100.0) fL MCH (25.0-35.0) pg MCHC (31.0-37.0) g/dL RDW (11.5-15.5) % Plt Count (150-450) k/uL MPV Neutrophils % % Lymphocytes % % Monocytes % % Eosinophils % % Basophils % % Neutrophils # (1.3-7.7) k/uL Lymphocytes # (1.0-4.8) k/uL Monocytes # (0-1.0) k/uL Eosinophils # (0-0.7) k/uL Basophils # (0-0.2) k/uL Microcytosis PT (10.0-12.5) sec INR (<1.2) APTT (22.0-30.0) sec D-Dimer (<0.60) mg/L FEU Sodium (137-145) mmol/L Potassium (3.5-5.1) mmol/L Chloride (98-107) mmol/L Carbon Dioxide (22-30) mmol/L Anion Gap mmol/L BUN (7-17) mg/dL Creatinine (0.52-1.04) mg/dL Est GFR (CKD-EPI)AfAm (>60 ml/min/1.73 sqM) Est GFR (CKD-EPI)NonAf (>60 ml/min/1.73 sqM) Glucose (74-99) mg/dL Calcium (8.4-10.2) mg/dL Magnesium (1.6-2.3) mg/dL Total Bilirubin (0.2-1.3) mg/dL AST (14-36) U/L ALT (4-34) U/L Alkaline Phosphatase (38-126) U/L Troponin I <0.012 (0.000-0.034) ng/mL NT-Pro-B Natriuret Pep pg/mL Total Protein (6.3-8.2) g/dL Albumin (3.5-5.0) g/dL Influenza Type A (PCR) Not Detected (Not Detectd) Influenza Type B (PCR) Not Detected (Not Detectd) RSV (PCR) Not Detected (Not Detectd) SARS-CoV-2 (PCR) Not Detected (Not Detectd) - EKG Data -: EKG Interpreted by Me EKG Comments: 12-lead Electrocardiogram Interpretation Note EKG was reviewed and interpreted by myself. 12-lead ECG performed at 1251 is interpreted by me as revealing normal sinus rhythm at a rate of 77 beats per minute. [place] is normal. ND interval 151 ms, QRS durations 82 ms, QTc is 408 ms.. There were no ST or T wave abnormalities to suggest myocardial ischemia or injury. R wave progression across the precordium was satisfactory. By my interpretation this EKG is non-diagnostic for acute ischemia. Disposition Clinical Impression: Tracheobronchitis, Chest wall muscle strain, Asthma exacerbation Disposition: HOME SELF-CARE Condition: Good Instructions (If sedation given, give patient instructions): Asthma (ED), Acute Bronchitis (ED) Prescriptions: predniSONE [Deltasone] 40 mg PO DAILY 5 Days #10 tab Azithromycin [Zithromax] 250 mg PO DAILY 4 Days #4 tab Is patient prescribed a controlled substance at d/c from ED?: No Referrals: Guero Bañuelos [Primary Care Provider] - 1-2 days Time of Disposition: 13:28
[2023-01-22] MEDS ORDERED: AZITHROMYCIN 500 MG TAB PO STA (13:35)
[2023-01-22 15:33] VITALS: BP 115/74; PULSE 86; TEMP 98.7
== END 2023-01-22 15:23 | disposition home or self-care (01) ==
LOC: EC 11:13
DX: S29.011A Strain of muscle and tendon of front wall of thorax, initial encounter (principal); J45.901 Unspecified asthma with (acute) exacerbation; F41.9 Anxiety disorder, unspecified; E07.9 Disorder of thyroid, unspecified; Z79.899 Other long term (current) drug therapy; Z20.822 Contact with and (suspected) exposure to COVID-19; Z79.890 Hormone replacement therapy; Z91.012 Allergy to eggs; Z91.09 Other allergy status, other than to drugs and biological substances; Z88.8 Allergy status to other drugs, medicaments and biological substances; X58.XXXA Exposure to other specified factors, initial encounter
CPT/HCPCS: 36415; 94640; 93005; 85379; 83880; 80053; 83735; 84484; 85025; 85610; 85730; 87636; 71046; 99285; 96374; 96375; 96361; J2930; J1885

== ENCOUNTER 2023-08-18 18:57 | Emergency (ER) | payer OTHER ==
[2023-08-18 19:56] VITALS: RESP 18; TEMP 98.4
--- NOTE | 2023-08-18 20:38 | ED ---
Allergic Reaction HPI - General Chief complaint: Allergic Reaction Stated complaint: allergic reaction Time Seen by Provider: 08/18/23 19:30 Source: patient Mode of arrival: ambulatory Limitations: no limitations - History of Present Illness Initial Comments: 27-year-old female with histories of allergies to dust, dander, mold presenting to the ED with complaints of allergic reaction. Patient states today she was getting allergy sensitization. Shortly after started to develop itching of bilateral upper extremities around the sites where she received the shots. Took some Benadryl however did not completely resolve her symptoms. Was instructed to present to the ED for further evaluation. Denies trouble breathing, trouble swallowing, drooling. No chest pain. No other complaints at this time. - Related Data Home Medications Medication Instructions Recorded Confirmed Albuterol Nebulized [Ventolin 2.5 mg INHALATION RT-QID PRN 01/09/17 10/12/20 Nebulized] Loratadine [Claritin] 10 mg PO DAILY 01/09/17 10/12/20 Montelukast [Singulair] 10 mg PO DAILY 01/09/17 10/12/20 Bcp 1 tab PO DAILY 10/09/20 10/12/20 Ergocalciferol [Vitamin D2 (1250 1,250 mcg PO WEEKLY 10/09/20 10/12/20 Mcg = 28206 Iu)] Escitalopram [Lexapro] 10 mg PO DAILY 10/09/20 10/12/20 Ferrous Sulfate [Feosol] 325 mg PO DAILY 10/09/20 10/12/20 LORazepam [Ativan] 0.5 mg PO DAILY PRN 10/09/20 10/12/20 Levothyroxine Sodium [Synthroid] 175 mcg PO DAILY 10/09/20 10/12/20 Previous Rx's Medication Instructions Recorded predniSONE 50 mg PO DAILY 5 Days #5 tab 09/28/22 Azithromycin [Zithromax] 250 mg PO DAILY 4 Days #4 tab 01/22/23 predniSONE [Deltasone] 40 mg PO DAILY 5 Days #10 tab 01/22/23 Allergies Allergy/AdvReac Type Severity Reaction Status Date / Time adhesive tape Allergy Rash/Hives Verified 08/18/23 19:19 corn Allergy Unknown Verified 08/18/23 19:19 egg Allergy Unknown Verified 08/18/23 19:19 Review of Systems ROS Statement: Those systems with pertinent positive or pertinent negative responses have been documented in the HPI. ROS Other: All systems not noted in ROS Statement are negative. Past Medical History Past Medical History: Asthma, Thyroid Disorder History of Any Multi-Drug Resistant Organisms: None Reported Past Surgical History: No Surgical Hx Reported Past Psychological History: Anxiety Smoking Status: Never smoker Past Alcohol Use History: None Reported Past Drug Use History: None Reported General Exam Limitations: no limitations General appearance: alert, in no apparent distress, obese Eye exam: Present: normal appearance ENT exam: Present: normal oropharynx, other (No stridor, tolerating secretions.) Neck exam: Present: normal inspection Respiratory exam: Present: normal lung sounds bilaterally Cardiovascular Exam: Present: regular rate GI/Abdominal exam: Present: soft Extremities exam: Present: normal inspection Back exam: Present: normal inspection Neurological exam: Present: alert, oriented X3 Skin exam: Present: warm, dry Course Vital Signs 08/18/23 19:15 Temperature 98.4 F Pulse Rate 81 Respiratory 18 Rate Blood Pressure 130/89 O2 Sat by Pulse 96 Oximetry Medical Decision Making - Medical Decision Making Was pt. sent in by a medical professional or institution (, PA, CASH ON DELIVERY CLERK, urgent care, hospital, or penitentiary...) When possible be specific @ -No Did you speak to anyone other than the patient for history (EMS, parent, family, police, friend...)? What history was obtained from this source @ -No Did you review nursing and triage notes (agree or disagree)? Why? @ -I reviewed and agree with nursing and triage notes Were old charts reviewed (outside hosp., previous admission, EMS record, old EKG, old radiological studies, urgent care reports/EKG's, penitentiary records)? Report findings @ -No old charts were reviewed Differential Diagnosis (chest pain, altered mental status, abdominal pain women, abdominal pain men, vaginal bleeding, weakness, fever, dyspnea, syncope, h eadache, dizziness, GI bleed, back pain, seizure, CVA, palpatations, mental health, musculoskeletal)? @ -Differential Musculoskeletal Anaphylaxis, Muscular strain, contusion, ligament sprain, fracture, arthritis, septic arthritis, bursitis, cellulitis, muscle spasm, nerve compression, DVT, arterial occlusion, herpes zoster, electrolyte abnormality, tumor.... This is not meant to be in all inclusive list EKG interpreted by me (3pts min.). @ -None X-rays interpreted by me (1pt min.). @ -None done CT interpreted by me (1pt min.). @ -None done U/S interpreted by me (1pt. min.). @ -None done What testing was considered but not performed or refused? (CT, X-rays, U/S, labs)? Why? @ -None What meds were considered but not given or refused? Why? @ -None Did you discuss the management of the patient with other professionals (professionals i.e. , PA, CASH ON DELIVERY CLERK, lab, RT, psych nurse, psychosocial rehabilitation counselor, office secretary, teacher, immigration services officer, counter caser)? Give summary @ -No Was smoking cessation discussed for >3mins.? @ -No Was critical care preformed (if so, how long)? @ -No Were there social determinants of health that impacted care today? How? (Homelessness, low income, unemployed, alcoholism, drug addiction, transportation, low edu. Level, literacy, decrease access to med. care, intermediate, rehab)? @ -No Was there de-escalation of care discussed even if they declined (Discuss DNR or withdrawal of care, Hospice)? DNR status @ -No What co-morbidities impacted this encounter? (DM, HTN, Smoking, COPD, CAD, Cancer, CVA, ARF, Chemo, Hep., AIDS, mental health diagnosis, sleep apnea, morbid obesity)? @ -Allergies Was patient admitted / discharged? Hospital course, mention meds given and route, prescriptions, significant lab abnormalities, going to OR and other pertinent info. @ -Discharge 27-year-old female presented to the ED with complaints of itching after receiving allergy sensitization shots today. Despite taking Benadryl reported momentary relief however itching has returned. No difficulty swallowing or breathing. On exam no significant oropharyngeal swelling. No stridor, tolerating secretions. Lungs are clear with no evidence of respiratory distress. Patient received dose of Benadryl, Pepcid, Solu-Medrol and monitored no adverse effect. Discharged home in stable condition and instructed to follow-up with her PCP. Discussed return precautions with patient who verbalized agreement. Undiagnosed new problem with uncertain prognosis? @ -No Drug Therapy requiring intensive monitoring for toxicity (Heparin, Nitro, Insulin, Cardizem)? @ -No Were any procedures done? @ -No Diagnosis/symptom? @ -Allergic reaction Acute, or Chronic, or Acute on Chronic? @ -Acute Uncomplicated (without systemic symptoms) or Complicated (systemic symptoms)? @ -Complicated Side effects of treatment? @ -No Exacerbation, Progression, or Severe Exacerbation? @ -No Poses a threat to life or bodily function? How? (Chest pain, [place], [place], pneumonia, PE, COPD, DKA, ARF, appy, cholecystitis, CVA, Diverticulitis, Homicidal, Suicidal, threat to staff... and all critical care pts) @ -Unlikely Disposition Clinical Impression: Allergic reaction after allergen immunotherapy Disposition: HOME SELF-CARE Condition: Good Instructions (If sedation given, give patient instructions): Anaphylaxis (ED) Additional Instructions: Please return to the Emergency Department if symptoms worsen or any other concerns. Please follow-up with your PCP. Is patient prescribed a controlled substance at d/c from ED?: No Referrals: Guero Bañuelos [Primary Care Provider] - 1-2 days Time of Disposition: 21:45
[2023-08-18] MEDS: diphenhydrAMINE 50 MG/ML 1 ML VIAL IVP STA (20:58)
[2023-08-18] MEDS: FAMOTIDINE 20 MG/2 ML VIAL IV STA (20:58)
[2023-08-18] MEDS: methylPREDNISolone SOD SUCCI 125 MG/2 ML VIAL IV STA (21:02)
[2023-08-18 22:27] VITALS: BP 130/90; PULSE 90
== END 2023-08-18 22:06 | disposition home or self-care (01) ==
LOC: EC 18:57
DX: T80.52XA Anaphylactic reaction due to vaccination, initial encounter (principal); Z91.09 Other allergy status, other than to drugs and biological substances; Z91.018 Allergy to other foods; Z91.012 Allergy to eggs
CPT/HCPCS: 99283; 96374; 96375 ×2; J1200; J3490; J2919

== ENCOUNTER 2023-10-12 21:59 | Emergency (ER) | payer OTHER ==
[2023-10-12 22:03] VITALS: BP 133/76; PULSE 87; RESP 16; TEMP 98.8
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
[2023-10-12] MEDS: IBUPROFEN 600 MG STARTER PACK 4 TAB BTL PO STA (22:21)
[2023-10-12] MEDS: KETOROLAC 15 MG/ML 1 ML VIAL IM STA (22:21)
== END 2023-10-12 22:23 | disposition home or self-care (01) ==
LOC: EC 21:59
DX: T23.212A Burn of second degree of left thumb (nail), initial encounter (principal); Z91.048 Other nonmedicinal substance allergy status; Z91.012 Allergy to eggs; Z91.018 Allergy to other foods
CPT/HCPCS: 99283; 96372; J1885

== ENCOUNTER 2023-12-12 13:52 | Emergency (ER) | payer OTHER ==
[2023-12-12 14:01] VITALS: RESP 18; TEMP 98.4
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
[2023-12-12 14:28] VITALS: BP 155/95; PULSE 100
== END 2023-12-12 14:27 | disposition home or self-care (01) ==
LOC: EC 13:52
DX: R07.0 Pain in throat
CPT/HCPCS: 87651; 99283